=== PATIENT | female | born 1950 | race Caucasian/White ===

== ENCOUNTER 2017-08-11 12:58 | Observation (INO) | payer OTHER ==
[2017-08-11 13:45] LABS: BASO % 1.2 % (0-2.0); EOS % 1.5 % (0-4.5); HEMOGLOBIN 12.3 GM/dL (10.7-15.3); MCH 27.3 pg (25.7-33.7); MCHC 31.6 g/dl (32.0-36.0); MEAN CELL VOLUME 86.6 fl (80-96); MEAN PLT VOLUME 7.5 fl (7.5-11.1); MONO % 8.2 % (3.8-10.2); NEUT % 56.1 % (42.8-82.8); PLATELET COUNT 374 K/MM3 (134-434); RDW 16.3 % (11.6-15.6); WHITE BLOOD COUNT 11.4 K/mm3 (4.0-10.0)
[2017-08-11 13:47] VITALS: BMI 38.9
--- NOTE | 2017-08-11 13:50 | PDOC ---
Attending Attestation - HPI HPI: 08/11/17 16:45 Patient is a 66 year old female with a significant past medical history of HTN and Gout who presents to the ED with complaints of rib pain that began last night while at home. Patient reports experiencing rib that she states was intermittent all day. She reports rib pain increased in pain this afternoon until it became unbearable prompting her to come into the ED for further evaluation. Patient reports experiencing associated cramping with bilateral rib pain. She states rib pain feels similar to past episodes of gout she has experienced. Denies nausea, vomiting. Denies nausea vomiting. Denies fevers, chills. Denies trauma to affected area. Denies contact with sick individuals, out of state travelling. Denies any other symptoms Allergies: None Social history: No smoking. No alcohol. No illicit drugs. Surgical history: None PMD: Dr. Flores - Physicial Exam PE: 08/11/17 16:45 Vitals: Triage Vital signs reviewed General Appearance: +Moderate distress. no acute distress, well nourished well developed Head: Atraumatic Eyes: Pupils equal reactive round, extraocular movement intact Ears: TMs normal bilaterally Nose: Nares patent bilaterally; no nasal congestion Throat: Posterior oropharynx without erythema, mucous membranes moist Neck: Supple; No Nuchal rigidity Chest Wall: Nontender Cardiac: Regular rate and rhythm, no murmurs, no rubs, no gallops Lungs: Clear to auscultation bilateral, good air movement bilaterally Abdomen: Soft, non distended, normal bowel sounds, non tender to palpation Genitourinary: Rectal: Exam deferred Extremities: Full range of motion to all extremities, no cyanosis, clubbing, or edema Skin: Warm and dry, no rashes or lesions, no rash, no petechiae Neuro: AOX3; Cranial Nerves 2-12 grossly intact, Strength intact to all extremities, Sensation intact to all extremities, gait normal Psych: Normal mood, normal affect - Medical Decision Making 08/11/17 16:45 Documentation prepared by Heraclio Coker, acting as biomedical engineering aide for Bobby Hooper MD, /DO. <Heraclio Coker - Last Filed: 08/11/17 16:45> - Resident Resident Name: Isaias Byrd - ED Attending Attestation I have performed the following: I have examined & evaluated the patient, The case was reviewed & discussed with the resident, I agree w/resident's findings & plan, Exceptions are as noted - Medical Decision Making 66 years old past medical history significant for hypertension and gout presents with severe chest pain eating radiating to her back Patient in extremities upon arrival to the emergency department given age and past medical history and distribution of pain strong initial concern for dissection patient emergently sent to CT for CTA Upon arrival back from CAT scan no obvious evidence of dissection chest pain workup initiated Nonischemic EKG, first troponin negative will observe overnight for further evaluation of ACS heart score 4. 08/11/17 17:37 <Bobby Hooper - Last Filed: 08/11/17 17:37>
[2017-08-11 14:00] LABS: INR 0.96 (0.82-1.09); PROTHROMBIN TIME (PATIENT) 10.8 SEC (9.98-11.88)
[2017-08-11 14:44] LABS: ALBUMIN 4.3 g/dl (3.4-5.0); ANION GAP 7 (8-16); BLOOD UREA NITROGEN 31 mg/dL (7-18); CALCIUM 9.6 mg/dL (8.5-10.1); CHLORIDE 99 mmol/L (98-107); CO2 30 mmol/L (21-32); CREATININE 1.3 mg/dL (0.55-1.02); GLUCOSE,RANDOM 107 mg/dL (74-106); MAGNESIUM 2.6 mg/dL (1.8-2.4); POTASSIUM 5.3 mmol/L (3.5-5.1); SGOT/AST 18 U/L (15-37); SGPT/ALT 23 U/L (12-78); SODIUM 136 mmol/L (136-145)
[2017-08-11 14:49] LABS: ALK PHOS 96 U/L (45-117); BILIRUBIN,TOTAL 0.3 mg/dL (0.2-1.0); TOT PROT 8.2 g/dl (6.4-8.2)
[2017-08-11] MEDS ORDERED: SODIUM CHLORIDE 0.9% 1000 ML INFUS.BAG IV ONE (15:09)
--- NOTE | 2017-08-11 15:44 | PDOC ---
History of Present Illness - General Chief Complaint: Chest Pain Stated Complaint: CHEST PAIN Time Seen by Provider: 08/11/17 13:10 History Source: Patient Exam Limitations: Language Barrier (Chain Sales Consultant [id number]) - History of Present Illness Initial Comments: 08/11/17 15:10 The patient is a 66F with a PMH of gout and HTN who presents to the ER with rib pain. The patient states that she started having rib pain last night, which is similar to gout pain she has had 2 years ago and was hospitalized at a different facility. She states she also has diffuse cramping that is associated with the rib pain. She says the pain started last night and has been intermittent throughout the night. Today around 1220, she says the pain became acutely worse with cramping. She denies CP, SOB, fever, chills, nausea, vomiting , diarrhea, constipation, abdominal pain. Past History - Past Medical History Allergies/Adverse Reactions: Allergies Allergy/AdvReac Type Severity Reaction Status Date / Time No Known Allergies Allergy Verified 06/04/14 11:57 Home Medications: Ambulatory Orders Allopurinol 300 mg PO DAILY 08/11/17 Atenolol 100 mg PO DAILY 08/11/17 Lasix 40 mg PO DAILY 08/11/17 COPD: No HTN: Yes Liver Disease: Yes (HEP C) Psychiatric Problems: No (DEPRESSION) Thyroid Disease: Yes (HYPOTHYROID) - Suicide/Smoking/Psychosocial Hx Smoking History: Never smoked Have you smoked in the past 12 months: No Number of Cigarettes Smoked Daily: 0 Information on smoking cessation initiated: No Hx Alcohol Use: No Drug/Substance Use Hx: No Review of Systems - Review of Systems Able to Perform ROS?: Yes Comments:: 08/11/17 15:53 GENERAL/CONSTITUTIONAL: No fever or chills. No weakness. HEAD, EYES, EARS, NOSE AND THROAT: No change in vision. No ear pain or discharge. No sore throat. CARDIOVASCULAR: No chest pain, palpitations, or lightheadedness. RESPIRATORY: No cough, wheezing, shortness of breath, or hemoptysis. GASTROINTESTINAL: No nausea, vomiting, diarrhea, constipation, or abdominal pain. GENITOURINARY: No dysuria, frequency, hematuria, or change in urination. MUSCULOSKELETAL: Positive for rib pain and diffuse cramps. SKIN: No rash or lesions. NEUROLOGIC: No headache, numbness, tingling, weakness, loss of consciousness, or change in strength/sensation. ENDOCRINE: No increased thirst. No abnormal weight change. HEMATOLOGIC/LYMPHATIC: No anemia, easy bleeding, or history of blood clots. ALLERGIC/IMMUNOLOGIC: No hives or skin allergy. Is the patient limited Nepali proficient: No *Physical Exam - Vital Signs Last Vital Signs Temp Pulse Resp BP Pulse Ox 98 F 67 24 167/101 100 08/11/17 13:25 08/11/17 13:25 08/11/17 13:25 08/11/17 13:25 08/11/17 13:25 - Physical Exam Comments: 08/11/17 15:53 GENERAL: Well developed, well nourished. Morbidly obese. Awake and alert. In moderate distress, tearful. HEENT: Normocephalic, atraumatic. Hearing grossly normal. Moist mucous membranes. PERRLA, EOMI. No conjunctival pallor. Sclera are non-icteric. NECK: Supple. Full ROM. No JVD. CARDIOVASCULAR: Regular rate and rhythm. No murmurs, rubs, or gallops. Tenderness over ribs. PULMONARY: No evidence of respiratory distress. Lungs clear to auscultation bilaterally. No wheezing, rales or rhonchi. ABDOMINAL: Soft. Non-tender. Non-distended. No rebound or guarding. MUSCULOSKELETAL: Normal range of motion at all joints. No bony deformities or tenderness. EXTREMITIES: No cyanosis. No clubbing. No edema. No calf tenderness. SKIN: Warm and dry. Normal capillary refill. No rashes. No jaundice. NEUROLOGICAL: Alert, awake, appropriate. Cranial nerves 2-12 intact. Normal speech. PSYCHIATRIC: Cooperative. Good eye contact. Appropriate mood and affect. Heart Score/ECG Review #1 ECG reviewed & interpreted by me at: 13:45 General ECG Interpretation: Sinus Rhythm, Normal Rate, Normal Intervals, No acute ischemic changes Compared to previous ECG there are: No significant change 08/11/17 15:56 NSR Rate 68 NV 144 QRS 86 QTc 414 No acute ischemic changes noted. ED Treatment Course - LABORATORY CBC & Chemistry Diagram: 08/11/17 13:37 08/11/17 13:37 - ADDITIONAL ORDERS Additional order review: Laboratory Results 08/11/17 08/11/17 13:37 13:37 PT with INR 10.80 INR 0.96 Sodium 136 Potassium 5.3 H Chloride 99 Carbon Dioxide 30 Anion Gap 7 L BUN 31 H Creatinine 1.3 H Creat Clearance w eGFR 40.73 Random Glucose 107 H Calcium 9.6 Magnesium 2.6 H Total Bilirubin 0.3 D AST 18 ALT 23 Alkaline Phosphatase 96 Creatine Kinase 81 Troponin I < 0.02 Total Protein 8.2 Albumin 4.3 08/11/17 13:37 RBC 4.50 MCV 86.6 MCHC 31.6 L RDW 16.3 H D MPV 7.5 Neutrophils % 56.1 D Lymphocytes % 33.0 Monocytes % 8.2 Eosinophils % 1.5 Basophils % 1.2 - RADIOLOGY Radiology Studies Ordered: Category Date Time Status CHEST CTA [CT] Stat CT Scan 08/11/17 13:27 Taken CHEST X-RAY PORTABLE* [RAD] Stat Radiology 08/11/17 13:10 Ordered Medical Decision Making - Medical Decision Making 08/11/17 15:56 The patient is a 66 F with a PMH of HTN and gout who presents with complaints of chest gout and cramping. On presentation, her complaints of chest pain radiating to her back prompted me to think of a dissection/ACS. Labs and line were done. EKG NSR. Pt is hypertensive. Pain is resolved. Will monitor closely. Trop negative. K slightly elevated at 5.3 without EKG changes. PCP called to inform of pt's presentation. 08/11/17 17:00 I have endorsed the patient to Dr. Liang for an admission under Dr. Romero. 08/11/17 17:22 I have discussed the patient with Dr. Doe, associate of Dr. Flores, who states she's had gout in the past but in her L ankle He denies finding any records about gout-pain in her chest. *DC/Admit/Observation/Transfer Diagnosis at time of Disposition: Chest pain Qualifiers: Chest pain type: other chest pain Qualified Code(s): R07.89 - Other chest pain - Discharge Dispostion Condition at time of disposition: Stable Admit: Yes - Referrals Referrals: German Flores MD [Primary Care Provider] - - Patient Instructions - Post Discharge Activity
[2017-08-11] MEDS ORDERED: ACETAMINOPHEN 1000 MG/100 ML VIAL (NON FORMULARY) IVPB ONE (16:30)
[2017-08-11] MEDS ORDERED: ACETAMINOPHEN INJECTION 100 ML IVPB ONE (16:33)
--- NOTE | 2017-08-11 18:09 | HP ---
CHIEF COMPLAINT: chest pain PCP: Dr. Flores HISTORY OF PRESENT ILLNESS: 66F Egyptian speaking with PMH of htn, gout, hypothyoidism, hep C (treated), presents with substernal chest pain since this morning while at the dentist office. Chest pain radiates to Right shoulder, and is associated with palpitations and sob. Pain became acutely worse this afternoon prompting her to come to the ER. Pt describes sharp pain, that reminds her of gout pain, though she has never had gout in the chest before. Pain is now resolved s/p Ofirmev in ER. Pt denies headache, change in vision, fever, chills, sick contacts, abdominal pain, nausea, vomiting, diarrhea, constipation, diaphoresis. ER course was notable for: (1) trop (-) (2) Chest/Thorax/Abd CTA -> (-) for aortic dissection (3) Ofirmev 1g, NS 1 L bolus PAST MEDICAL HISTORY: htn gout hypothyroidism hep C (treated) PAST SURGICAL HISTORY: thyroidectomy Social History: Smoking: remote hx of 10 pack yrs, quit 10 yrs ago Alcohol: denies Drugs: denies Family History: no significant cardiac hx Allergies No Known Allergies Allergy (Verified 06/04/14 11:57) HOME MEDICATIONS: Home Medications Medication Instructions Recorded Allopurinol 300 mg PO DAILY 08/11/17 Atenolol 100 mg PO DAILY 08/11/17 Lasix 40 mg PO DAILY 08/11/17 REVIEW OF SYSTEMS CONSTITUTIONAL: Absent: fever, chills, diaphoresis, generalized weakness HEENT: Absent: rhinorrhea, nasal congestion, throat pain, ear pain, eye pain, visual changes CARDIOVASCULAR: chest pain, palpitations Absent: irregular heart rate, lightheadedness, peripheral edema RESPIRATORY: shortness of breath Absent: cough, orthopnea, wheezing, stridor, hemoptysis GASTROINTESTINAL: Absent: abdominal pain, abdominal distension, nausea, vomiting, diarrhea, constipation GENITOURINARY: Absent: dysuria, frequency MUSCULOSKELETAL: Absent: myalgia, arthralgia, joint swelling, back pain, neck pain SKIN: Absent: rash, itching, pallor HEMATOLOGIC/IMMUNOLOGIC: Absent: easy bleeding, easy bruising NEUROLOGIC: Absent: headache, focal weakness or paresthesias, dizziness, unsteady gait PHYSICAL EXAMINATION Vital Signs - 24 hr 08/11/17 08/11/17 13:25 16:07 Temperature 98 F 97.8 F Pulse Rate 67 Pulse Rate [ 65 Right] Respiratory 24 15 Rate Blood Pressure 167/101 Blood Pressure 146/62 [Left Arm] O2 Sat by Pulse 100 99 Oximetry (%) GENERAL: Awake, alert, and fully oriented, in no acute distress. EYES: Pupils equal, round and reactive to light, extraocular movements intact, sclera anicteric, conjunctiva clear. No lid lag. EARS, NOSE, THROAT: Moist mucous membranes. NECK: Normal range of motion, supple without lymphadenopathy, JVD, or masses. LUNGS: Breath sounds equal, clear to auscultation bilaterally. No wheezes, and no crackles. No accessory muscle use. HEART: Regular rate and rhythm, normal S1 and S2 without murmur, rub or gallop. + chest wall tenderness. ABDOMEN: Soft, nontender, not distended, no guarding. MUSCULOSKELETAL: Normal range of motion at all joints. No bony deformities or tenderness. LOWER EXTREMITIES: Warm, well-perfused. No calf tenderness. No peripheral edema. NEUROLOGICAL: Cranial nerves II-XII intact. Normal speech. PSYCHIATRIC: Cooperative. Good eye contact. Appropriate mood and affect. SKIN: Warm, dry, normal turgor, no rashes or lesions noted. Laboratory Results - last 24 hr 08/11/17 08/11/17 08/11/17 13:37 13:37 13:37 WBC 11.4 H D RBC 4.50 Hgb 12.3 Hct 39.0 MCV 86.6 MCH 27.3 MCHC 31.6 L RDW 16.3 H D Plt Count 374 D MPV 7.5 Neutrophils % 56.1 D Lymphocytes % 33.0 Monocytes % 8.2 Eosinophils % 1.5 Basophils % 1.2 PT with INR 10.80 INR 0.96 Sodium 136 Potassium 5.3 H Chloride 99 Carbon Dioxide 30 Anion Gap 7 L BUN 31 H Creatinine 1.3 H Creat Clearance w eGFR 40.73 Random Glucose 107 H Calcium 9.6 Magnesium 2.6 H Total Bilirubin 0.3 D AST 18 ALT 23 Alkaline Phosphatase 96 Creatine Kinase 81 Troponin I < 0.02 Total Protein 8.2 Albumin 4.3 IMAGIN08/11/17 Chest/Thorax/Abd CTA -> no aortic dissection. Mild mally lower lung groundglass interstitial thickening which may represent small airway disease. 2.4cm x 1.7cm heterogeneous soft tissue nodule in inferior aspect of Left thyroid fossa, Ddx: residual thyroid disease vs parathyroid adenoma vs enlarged lymph node. F/u recommended. Mild Left adrenal gland thickening likely 2/2 hyperplasia vs multiple small adenomas. 3 mo f/u with CT or MRI recommended. 0.2cm Right upper lobe lung nodule noted. 08/11/17 EKG -> no ST segment changes, NSR 86, QTc 414 ASSESSMENT/PLAN: 66F Egyptian speaking with PMH of htn, gout, hypothyoidism, hep C (treated), presents with substernal chest pain since this morning, admitted to Tele Obs for ACS r/o. # chest pain - Ddx: ACS vs muscloskeletal - f/u troponin - continuous cardiac monitoring - f/u Echo - Cardiology Consult # NINO - likely 2/2 dehydration - continue to monitor s/p 1L bolus of NS - f/u urine lytes - hold home med of Lasix # htn - continue home meds of Atenolol and Norvasc # gout - no s/s of flare - hold home meds of Allopurinol, Colchicine, and Indomethacin for now 2/2 NINO # thyroid nodule - s/p thyroidectomy, Ddx: residual thyroid tissue vs parathyroid adenoma vs enlarged lymph node - f/u outpatient # hyperkalemia - no EKG changes noted - continue to monitor # FEN - Fluids: po - Electrolytes: hyperkalemia and hypermagnesemia noted, continue to monitor - Nutrition: low sodium diet # Prophylaxis - DVT ppx with early ambulation Visit type - Emergency Visit Emergency Visit: Yes ED Registration Date: 08/11/17 Care time: The patient presented to the Emergency Department on the above date and was hospitalized for further evaluation of their emergent condition. - New Patient This patient is new to me today: Yes Date on this admission: 08/11/17 - Critical Care Critical Care patient: No Hospitalist Screening - Colonoscopy Questionnaire Colonoscopy Questionnaire: Colonoscopy Questionnaire - Patient: 50 - 75 years old and never had a screening colonoscopy: Unknown History of colon or rectal polyps, or CA: Unknown History of IBD, Crohn's disease or UC: No History of abdominal radiation therapy as a child: No - Relative: 1 with colon or rectal CA, or polyps at age 60 or younger: Unknown Colon or rectal CA diagnosed at age 45 or younger: No Multiple relatives with colon or rectal CA: Unknown - Outcome: Screening Result: Negative Screen
--- NOTE | 2017-08-11 18:48 | PN ---
Teaching Attending Note Name of Resident: Daysi Mclean ATTENDING PHYSICIAN STATEMENT I saw and evaluated the patient. I reviewed the resident's note and discussed the case with the resident. I agree with the resident's findings and plan as documented. SUBJECTIVE:66yo F wtih PMH HTN, gout, hypothyroid s/p thyroidectomy, HCV s/p treated presenting with episode of CP radiating to the R shoulder today while at the dentist office. states pain lasted for several hours and resolved with tylenol on arrival to the ER. assoc with palpitations and dyspnea. states she was unable to sleep last night and was up all night with leg cramps. had similar episode on Monday at her PMD office but less severe and PMD gave her new script for lasix/atenolol/allopurinol which she started taking and did take this AM. does have intermittent SOB with back pain on exertion for several weeks. Had treadmill stress test 3 years ago which she does not know the results but was told she could not travel for 3 months after the test. Stress test was negative and done prior to lipoma removal in the trachea?. denies CP at rest, N/V/C/D, palpitations, diaphoresis, numbness/tingling of the extremities no significant family hx for cardiac disease quit smoking 10 years ago OBJECTIVE: Last Vital Signs Temp Pulse Resp BP Pulse Ox 97.8 F 64 15 152/90 100 08/11/17 16:07 08/11/17 18:39 08/11/17 18:39 08/11/17 18:39 08/11/17 18:39 General NAD CV S1 S2 RRR no murmur/rub/gallop +chest wall tenderness Lungs CTA B/L no wheezing/rales/rhonchi Abdomen soft NT/ND Extremities RUE no pain on passive movement. +non pitting edema limited to the arm. no pedal edema EKG NSR no ST changes or peaked T waves ASSESSMENT AND PLAN: 66yo F wtih PMH HTN, gout, hypothyroid s/p thyroidectomy, HCV s/p treated presenting with episode of CP radiating to the R shoulder today while at the dentist office. 1. ACS-believe this is more to "white coat syndrome" and anxiety however can not r/o acs. tele observation. continuous cardiac monitoring. CTA done to R/o dissection, no PE seen. trend cardiac enzymes q6H. will consult cardiology. Stress test was negative however told not to fly 3 months after. (old thinking due to radiation exposure) 2. Leukocytosis- stress related. do not believe to have infection. CT negative for infiltrate. no indication for abx 3. NINO- due to dehydration. received IVF in the ER. started on lasix recently. might be overdiuresed. hold lasix 4. Thyroid nodule- s/p thyroidectomy may have residual tissue. will need f/u as outpatient 5. RUL pulmonary nodule- will need outpatient follow up 6. HTN- currently above goal. will restart home medications 7. gout- no signs of gout flare. hold allopuinol due to nino 8. HCV s/p treatment 9. DVT ppx- EAM 10. case spoke with family present at bedside. all questions answered.
[2017-08-12 02:11] LABS: URINE APPEARANCE CLEAR; URINE BILIRUBIN NEGATIVE (NEGATIVE); URINE BLOOD NEGATIVE (NEGATIVE); URINE COLOR STRAW; URINE GLUCOSE (UA) NEGATIVE (NEGATIVE); URINE KETONE NEGATIVE (NEGATIVE); URINE LEUK ESTERASE NEGATIVE (NEGATIVE); URINE NITRITE NEGATIVE (NEGATIVE); URINE PROTEIN NEGATIVE (NEGATIVE); URINE UROBILINOGEN NEGATIVE mg/dL (0.2-1.0)
[2017-08-12 06:54] LABS: HEMATOCRIT 32.9 % (32.4-45.2); HEMOGLOBIN 10.9 GM/dL (10.7-15.3); MCH 28.6 pg (25.7-33.7); MCHC 33.2 g/dl (32.0-36.0); MEAN PLT VOLUME 8.1 fl (7.5-11.1); PLATELET COUNT 314 K/MM3 (134-434); RBC 3.82 M/mm3 (3.60-5.2); RDW 16.9 % (11.6-15.6); WHITE BLOOD COUNT 7.3 K/mm3 (4.0-10.0)
[2017-08-12 07:09] LABS: CHLORIDE 100 mmol/L (98-107); POTASSIUM 4.7 mmol/L (3.5-5.1); SODIUM 139 mmol/L (136-145)
[2017-08-12 07:26] LABS: ANION GAP 10 (8-16); BLOOD UREA NITROGEN 25 mg/dL (7-18); CO2 29 mmol/L (21-32); CREATININE 1.2 mg/dL (0.55-1.02); GLUCOSE,RANDOM 96 mg/dL (74-106); MAGNESIUM 2.6 mg/dL (1.8-2.4); PHOSPHOROUS 4.7 mg/dL (2.5-4.9)
[2017-08-12] MEDS ORDERED: PATIENT'S OWN MEDICATION (NON-FORMULARY) (Atenolol [Tenormin] 100 MG) PO SCH (10:00)
[2017-08-12] MEDS ORDERED: amLODIPine BESYLATE 10 MG TABLET (FP) PO SCH (10:00)
[2017-08-12] MEDS ORDERED: COLCHICINE 0.6 MG TABLET (FP) PO SCH (10:00)
[2017-08-12] MEDS ORDERED: ATENOLOL 50 MG TABLET (FP) PO SCH (10:00)
[2017-08-12] MEDS ORDERED: ALLOPURINOL 300 MG TABLET (FP) PO SCH (10:00)
[2017-08-12 10:03] VITALS: BP 128/59; PULSE 73; TEMP 96.6
--- NOTE | 2017-08-12 12:46 | DS ---
Physical Exam: SUBJECTIVE: Patient seen and examined. continues to have chest pain that radiates from her R leg to her chest. denies fever, chills, palpitations, N/V/C/ D OBJECTIVE: Vital Signs Period Temp Pulse Resp BP Sys/[place] Pulse Ox Last 24 Hr 96.6 F-98.1 F 64-73 15-24 118-182/59-101 95-100 PHYSICAL EXAM GENERAL: The patient is awake, alert, and fully oriented, in no acute distress. HEAD: Normal with no signs of trauma. EYES: PERRL, extraocular movements intact, sclera anicteric, conjunctiva clear. ENT: Ears normal, nares patent, oropharynx clear without exudates, moist mucous membranes. NECK: Trachea midline, full range of motion, supple. LUNGS: Breath sounds equal, clear to auscultation bilaterally, no wheezes, no crackles, no accessory muscle use. HEART: Regular rate and rhythm, S1, S2 without murmur, rub or gallop. +chest wall tenderness ABDOMEN: Soft, nontender, nondistended, normoactive bowel sounds, no guarding, no rebound, no hepatosplenomegaly, no masses. obese EXTREMITIES: 2+ pulses, warm, well-perfused, no edema. NEUROLOGICAL: Cranial nerves II through XII grossly intact. Normal speech, gait not observed. muskuloskeletal- diffuse point tenderness, B/L shoulder, thighs, neck, spine PSYCH: Normal mood, normal affect. SKIN: Warm, dry, normal turgor, no rashes or lesions noted. LABS Laboratory Results - last 24 hr 08/11/17 08/11/17 08/11/17 13:37 13:37 13:37 WBC 11.4 H D RBC 4.50 Hgb 12.3 Hct 39.0 MCV 86.6 MCH 27.3 MCHC 31.6 L RDW 16.3 H D Plt Count 374 D MPV 7.5 Neutrophils % 56.1 D Lymphocytes % 33.0 Monocytes % 8.2 Eosinophils % 1.5 Basophils % 1.2 PT with INR 10.80 INR 0.96 Sodium 136 Potassium 5.3 H Chloride 99 Carbon Dioxide 30 Anion Gap 7 L BUN 31 H Creatinine 1.3 H Creat Clearance w eGFR 40.73 Random Glucose 107 H Calcium 9.6 Phosphorus Magnesium 2.6 H Total Bilirubin 0.3 D AST 18 ALT 23 Alkaline Phosphatase 96 Creatine Kinase 81 Troponin I < 0.02 Total Protein 8.2 Albumin 4.3 Urine Color Urine Appearance Urine pH Ur Specific [place] Urine Protein Urine Glucose (UA) Urine Ketones Urine Blood Urine Nitrite Urine Bilirubin Urine Urobilinogen Ur Leukocyte Esterase Ur Random Sodium Urine Creatinine 08/11/17 08/12/17 08/12/17 20:45 02:00 02:00 WBC RBC Hgb Hct MCV MCH MCHC RDW Plt Count MPV Neutrophils % Lymphocytes % Monocytes % Eosinophils % Basophils % PT with INR INR Sodium Potassium Chloride Carbon Dioxide Anion Gap BUN Creatinine Creat Clearance w eGFR Random Glucose Calcium Phosphorus Magnesium Total Bilirubin AST ALT Alkaline Phosphatase Creatine Kinase Troponin I < 0.02 Total Protein Albumin Urine Color Straw Urine Appearance Clear Urine pH 7.0 D Ur Specific [place] 1.017 Urine Protein Negative Urine Glucose (UA) Negative Urine Ketones Negative Urine Blood Negative Urine Nitrite Negative Urine Bilirubin Negative Urine Urobilinogen Negative Ur Leukocyte Esterase Negative Ur Random Sodium 67 Urine Creatinine 08/12/17 08/12/17 08/12/17 02:00 05:10 05:10 WBC 7.3 D RBC 3.82 Hgb 10.9 D Hct 32.9 D MCV 86.0 MCH 28.6 MCHC 33.2 RDW 16.9 H Plt Count 314 MPV 8.1 Neutrophils % Lymphocytes % Monocytes % Eosinophils % Basophils % PT with INR INR Sodium 139 Potassium 4.7 Chloride 100 Carbon Dioxide 29 Anion Gap 10 BUN 25 H Creatinine 1.2 H Creat Clearance w eGFR Random Glucose 96 Calcium 9.0 Phosphorus 4.7 Magnesium 2.6 H Total Bilirubin AST ALT Alkaline Phosphatase Creatine Kinase Troponin I Total Protein Albumin Urine Color Urine Appearance Urine pH Ur Specific [place] Urine Protein Urine Glucose (UA) Urine Ketones Urine Blood Urine Nitrite Urine Bilirubin Urine Urobilinogen Ur Leukocyte Esterase Ur Random Sodium Urine Creatinine 36.1 HOSPITAL COURSE: Date of Admission:08/11/17 Date of Discharge: 08/12/17 Admitting diagnosis: R/o ACS, NINO Pre hospital course 66yo F wtih PMH HTN, gout, hypothyroid s/p thyroidectomy, HCV s/p treated presenting with episode of CP radiating to the R shoulder today while at the dentist office. states pain lasted for several hours and resolved with tylenol on arrival to the ER. assoc with palpitations and dyspnea. states she was unable to sleep last night and was up all night with leg cramps. had similar episode on Monday at her PMD office but less severe and PMD gave her new script for lasix/atenolol/allopurinol which she started taking and did take this AM. does have intermittent SOB with back pain on exertion for several weeks. Had treadmill stress test 3 years ago which she does not know the results but was told she could not travel for 3 months after the test. Stress test was done prior to ?lipoma removal in the trachea. denies CP at rest, N/V/C/ D, palpitations, diaphoresis, numbness/tingling of the extremities no significant family hx for cardiac disease quit smoking 10 years ago Subsequent hospital course Tele observation. no events noted on youth nutritional monitor. cardiac enzymes neg x2. continues to have persistent musculoskeletal pain diffusely. pain persisted to morning and reproducible. exercise stress test was neg 3 years ago per daughter. NINO improved with gentle hydration. will d/c home. encourage pt to hold lasix at this time. should follow up wt PMD this week and possible [facility] possible fibromyalgia as she has diffuse symmetrical pain points. Minutes to complete discharge: 40 Discharge Summary Reason For Visit: CHEST PAIN Current Active Problems NINO (acute kidney injury) (Acute) Chest pain (Acute) Condition: Improved - Instructions Diet, Activity, Other Instructions: You were observed in the hospital due to Chest pain. Your heart was monitored during this time. All testing was negative. It seems like this chest pain was due to anxiety while at the doctors office. You were found to have a slight bump in your kidney function likely due to the lasix. I would recommend holding it at this time until you are re-evaluated by your primary care doctor and have your kidney function repeated. On CT scan there was found to have a Left thyroid nodule as well as a nodule in your right lung. You should have repeat imaging to further evaluate these findings. Follow up with your primary care doctor this week. Discuss with him your chronic diffuse body aches that you have been experiencing. You may benefit from a rheumatology evaluation IF you develop worsening chest pain return to the ER. Referrals: German Flores MD [Primary Care Provider] - 1 Week Disposition: HOME - Home Medications Comprehensive Discharge Medication List: Ambulatory Orders Allopurinol [Zyloprim -] 300 mg PO DAILY 08/11/17 Amlodipine Besylate [Norvasc -] 10 mg PO DAILY 08/11/17 Atenolol [Tenormin] 100 mg PO DAILY 08/11/17 Colchicine 0.6 mg PO DAILY 08/11/17 Indomethacin 50 mg PO BID 08/11/17 Atenolol [Tenormin -] 100 mg PO DAILY tablet 08/12/17 This patient is new to me today: No Emergency Visit: Yes ED Registration Date: 08/11/17 Care time: The patient presented to the Emergency Department on the above date and was hospitalized for further evaluation of their emergent condition. Critical Care patient: No - Discharge Referral Referred to [facility] Med P.C.: No
--- NOTE | 2017-08-12 14:51 | PN ---
Progress Note, Physician History of Present Illness: Patient is a 66 year old female with a significant past medical history of HTN and Gout who presents to the ED with complaints of rib pain that began last night while at home. Patient reports experiencing rib that she states was intermittent all day. She reports rib pain increased in pain this afternoon until it became unbearable prompting her to come into the ED for further evaluation. Patient reports experiencing associated cramping with bilateral rib pain. She states rib pain feels similar to past episodes of gout she has experienced. - Current Medication List Current Medications: Active Medications Amlodipine Besylate (Norvasc -) 10 mg PO DAILY COUNTS INCLUDE 234 BEDS AT THE [facility] Last Admin: 08/12/17 09:27 Dose: 10 mg Atenolol (Tenormin -) 100 mg PO DAILY COUNTS INCLUDE 234 BEDS AT THE [facility] Last Admin: 08/12/17 09:27 Dose: 100 mg - Objective Vital Signs: Vital Signs Temperature 96.6 F L 08/12/17 09:00 Pulse Rate 73 08/12/17 09:00 Respiratory Rate 16 08/12/17 09:00 Blood Pressure 128/59 08/12/17 09:00 O2 Sat by Pulse Oximetry (%) 95 08/12/17 09:00 Labs: CBC, BMP 08/12/17 05:10 08/12/17 05:10 INR, PTT INR 0.96 (0.82-1.09) 08/11/17 13:37 Problem List - Problems (1) Gout Code(s): M10.9 - GOUT, UNSPECIFIED
--- NOTE | 2017-08-15 11:44 | EKG ---
Test Reason : Blood Pressure : / mmHG Vent. Rate : 073 BPM Atrial Rate : 073 BPM P-R Int : 138 ms QRS Dur : 090 ms QT Int : 384 ms P-R-T Axes : 055 034 055 degrees QTc Int : 423 ms NORMAL SINUS RHYTHM NORMAL ECG WHEN COMPARED WITH ECG OF 04-JUN-2014 17:00, INCOMPLETE RIGHT BUNDLE BRANCH BLOCK IS NO LONGER PRESENT Confirmed by MD Geovani, German ([id number]) on 08/15/2017 11:44:09 AM Referred By: Confirmed By:German Olivo MD
== END 2017-08-12 15:49 | disposition home or self-care (01) ==
LOC: JER 12:58 → JERBED 17:01 → J4W 19:25
PROVIDERS: ADMIT Internal Medicine; ATTEND Internal Medicine
PROC: 3E033GC Introduction of Other Therapeutic Substance into Peripheral Vein, Percutaneous Approach (ICD-10-PCS; principal; 2017-08-11)
PROC: 3E0337Z Introduction of Electrolytic and Water Balance Substance into Peripheral Vein, Percutaneous Approach (ICD-10-PCS; 2017-08-11)
DX: R07.89 Other chest pain (principal); I10 Essential (primary) hypertension; E03.9 Hypothyroidism, unspecified; M10.9 Gout, unspecified; B18.2 Chronic viral hepatitis C; N17.9 Acute kidney failure, unspecified; E87.5 Hyperkalemia; E04.1 Nontoxic single thyroid nodule; D72.829 Elevated white blood cell count, unspecified; R91.1 Solitary pulmonary nodule
CPT/HCPCS: 36415; 71275-TC; 74175-TC; 80048; 80053; 81003; 82550; 82570; 83735; 84100; 84300; 84484; 85025; 85027; 85610; 93005; 93010; 96374; 99285-25; G0378

== ENCOUNTER 2019-07-20 14:48 | Emergency (ER) | payer OTHER ==
[2019-07-20 15:45] VITALS: BMI 32.8
--- NOTE | 2019-07-20 15:55 | PDOC ---
Attending Attestation - Resident Resident Name: Austen Peterson - HPI HPI: 07/20/19 19:45 pt presents to the ED complaining of gradual onset, diffuse frontal headache. Also complaining of subjective fevers and diffuse myalgias. Denies nausea and vomiting but does complain of photophobia. Denies neck stiffness. Denies cough. - Physicial Exam PE: 07/20/19 19:47 Agree with resident exam. patient is alert and oriented and in no acute distress. HEENT: normocephalic, atraumatic. Neck: supple CV: rrr no m/r/g Pulm : cta b/l Abdomen:soft, non tender, non distended - Medical Decision Making 07/20/19 19:48 PT presents to the ED complaining of diffuse frontal headache, subjective fevers and diffuse myalgias. No stiffness or rash. Flu is negative. afebrile rectally, so menigitis is unlikely. Will check CT head to rule out intracranial pathology and likely discharge home if negative.
--- NOTE | 2019-07-20 16:26 | PDOC ---
History of Present Illness - General Chief Complaint: Headache Stated Complaint: FEVER/COLD SYMPTOMS Time Seen by Provider: 07/20/19 15:55 History Source: Patient Exam Limitations: No Limitations - History of Present Illness Initial Comments: 07/20/19 18:25 68 yo F with a hx of HTN, gout, hypothyroidism s/p thyroidectomy, hepatitis C, and vertigo presents to the emergency department with fever, generalized weakness, headache, and nausea. Per the patient, she states she has been having symptoms since yesterday. She denies trauma to the head. Per the patient, she subjectively has a fever, but denies taking her temperature objectively while at home. Her headache is located globally throughout the cranium and is a throbbing sensation. Denies vomiting but endorses nausea. Endorses diarrhea beginning today. In concurrence, she has epigastric pain without radiation that is sharp in nature without aggravating or relieving factors. Allergies: NDKA Past History - Past Medical History Allergies/Adverse Reactions: Allergies Allergy/AdvReac Type Severity Reaction Status Date / Time No Known Allergies Allergy Verified 06/04/14 11:57 Home Medications: Ambulatory Orders Allopurinol [Zyloprim -] 300 mg PO DAILY 08/11/17 Atenolol [Tenormin] 100 mg PO DAILY 08/11/17 Duloxetine HCl [Cymbalta -] 30 mg PO BID 07/20/19 Fluticasone Furoate [Arnuity Ellipta] 50 mcg IH BID 07/20/19 Folic Acid - 800 mg PO DAILY 07/20/19 Gabapentin [Neurontin] 300 mg PO BID 07/20/19 Ibuprofen [Motrin -] 600 mg PO BID PRN 07/20/19 Lisinopril [Zestril] 40 mg PO DAILY 07/20/19 Losartan Potassium [Cozaar -] 50 mg PO DAILY 07/20/19 Methotrexate [Xatmep] 2.5 mg PO WEEKLY 07/20/19 Nifedipine [Nifedipine ER] 60 mg PO DAILY 07/20/19 Omeprazole 20 mg PO DAILY 07/20/19 Telmisartan [Micardis] 80 mg PO DAILY 07/20/19 COPD: No HTN: Yes Liver Disease: Yes (HEP C) Psychiatric Problems: No (DEPRESSION) Thyroid Disease: Yes (HYPOTHYROID) - Psycho Social/Smoking Cessation Hx Smoking History: Never smoked Have you smoked in the past 12 months: No Number of Cigarettes Smoked Daily: 0 Hx Alcohol Use: No Drug/Substance Use Hx: No Review of Systems - Review of Systems Able to Perform ROS?: Yes Is the patient limited German proficient: No Constitutional: Yes: Fever, Weakness. No: Chills, Diaphoresis HEENTM: No: Eye Pain, Ear Pain, Nose Pain, Throat Pain, Mouth Pain Respiratory: No: Cough, Shortness of Breath, Hemoptysis Cardiac (ROS): No: Chest Pain, Lightheadedness, Palpitations, Chest Tightness ABD/GI: Yes: Nausea, Abdominal cramping. No: Constipated, Diarrhea, Rectal Bleeding, Vomiting, Tarry Stools : No: Burning, Dysuria, Hematuria Musculoskeletal: No: Back Pain, Joint Pain, Neck Pain Integumentary: No: Bruising, Erythema, Rash Neurological: Yes: Headache. No: Numbness, Tingling, Tremors Psychiatric: No: Change in Appetite Endocrine: No: Unexplained Weight Loss Hematologic/Lymphatic: No: Anemia *Physical Exam - Vital Signs Last Vital Signs Temp Pulse Resp BP Pulse Ox 99.5 F 82 19 163/73 96 07/20/19 15:41 07/20/19 15:41 07/20/19 15:41 07/20/19 15:41 07/20/19 15:41 - Physical Exam General Appearance: Yes: Nourished, Appropriately Dressed. No: Apparent Distress, Alcohol on Breath, Intoxicated HEENT: positive: EOMI, [place], Normal Voice, Symmetrical, Pharynx Normal, Hearing Grossly Normal. negative: TMs Normal (right TM erythematous with serrous effusion), Pale Conjunctivae, Scleral Icterus (R), Scleral Icterus (L), Muffled/ Hoarse voice, Pharyngeal Erythema, Tonsillar Exudate, Tonsillar Erythema, Nasal Congestion, Rhinorrhea, Sinus Tenderness, Excessive drooling Neck: positive: Trachea midline, Supple. negative: Tender, Lymphadenopathy (R) , Lymphadenopathy (L), Tender lateral, Tender midline Respiratory/Chest: positive: Lungs Clear, Normal Breath Sounds. negative: Chest Tender, Respiratory Distress, Accessory Muscle Use, Crackles, Rales, Rhonchi, Stridor, Wheezing Cardiovascular: positive: Regular Rhythm, Regular Rate, S1, S2. negative: Systolic Murmur Gastrointestinal/Abdominal: positive: Normal Bowel Sounds, Tender (epigastric region), Flat, Soft. negative: Distended, Guarding, Rebound Lymphatic: negative: Adenopathy Musculoskeletal: positive: Normal Inspection. negative: CVA Tenderness, Vertebral Tenderness Extremity: positive: Normal Capillary Refill, Normal Inspection, Normal Range of Motion. negative: Tender, Swelling, Calf Tenderness Integumentary: positive: Normal Color, Dry, Warm. 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 negative: EOM Palsy, Facial Droop , Numbness, Sensory Deficit ED Treatment Course - LABORATORY CBC & Chemistry Diagram: 07/20/19 16:48 07/20/19 16:48 Medical Decision Making - Medical Decision Making 68 yo F with a hx of HTN, gout, hypothyroidism s/p thyroidectomy, hepatitis C, and vertigo presents to the emergency department with fever, generalized weakness, headache, and nausea. Initial vitals: Initial Vital Signs Temp Pulse Resp BP Pulse Ox 99.5 F 82 19 163/73 96 07/20/19 15:41 07/20/19 15:41 07/20/19 15:41 07/20/19 15:41 07/20/19 15:41 Work up: patient presents with a multitude of complaints. Most notably, the patient states her headache is particularly severe and the different in quality from her previous headaches. It started yesterday. Will obtain head CT to rule out IC pathologies (SAH vs SDH vs EDH). Also will obtain the following labs: cbc, cmp, trops, magnesium, lipase, and UA to elucidate etiology of weakness with a cardiac vs metabolic vs infectious. Will also rule out pancreatitis and influenza. Will require a rectal temperature. Laboratory Tests 07/20/19 07/20/19 07/20/19 16:48 16:48 16:48 WBC 6.9 RBC 3.58 L Hgb 10.5 L Hct 32.8 MCV 91.6 MCH 29.4 MCHC 32.1 RDW 15.6 Plt Count 255 MPV 7.6 Absolute Neuts (auto) 4.4 Neutrophils % 63.8 Lymphocytes % 21.7 D Monocytes % 12.6 H Eosinophils % 1.4 Basophils % 0.5 Nucleated RBC % 0 Sodium 135 L Potassium 4.6 Chloride 102 Carbon Dioxide 26 Anion Gap 7 L BUN 18.7 H Creatinine 1.1 Est GFR (CKD-EPI)AfAm 58.91 Est GFR (CKD-EPI)NonAf 50.83 Random Glucose 89 Calcium 9.1 Magnesium 2.2 Total Bilirubin 0.3 AST 29 ALT 23 Alkaline Phosphatase 81 Creatine Kinase 96 Troponin I < 0.02 Total Protein 7.7 Albumin 3.7 Lipase 81 Urine Color Urine Appearance Urine pH Ur Specific [place] Urine Protein Urine Glucose (UA) Urine Ketones Urine Blood Urine Nitrite Urine Bilirubin Urine Urobilinogen Ur Leukocyte Esterase Urine WBC (Auto) Urine RBC (Auto) Urine Casts (Auto) U Epithel Cells (Auto) Urine Bacteria (Auto) Influenza A (Rapid) Influenza B (Rapid) 07/20/19 07/20/19 16:48 19:00 WBC RBC Hgb Hct MCV MCH MCHC RDW Plt Count MPV Absolute Neuts (auto) Neutrophils % Lymphocytes % Monocytes % Eosinophils % Basophils % Nucleated RBC % Sodium Potassium Chloride Carbon Dioxide Anion Gap BUN Creatinine Est GFR (CKD-EPI)AfAm Est GFR (CKD-EPI)NonAf Random Glucose Calcium Magnesium Total Bilirubin AST ALT Alkaline Phosphatase Creatine Kinase Troponin I Total Protein Albumin Lipase Urine Color Yellow Urine Appearance Clear Urine pH 7.0 Ur Specific [place] 1.007 L Urine Protein Negative Urine Glucose (UA) Negative Urine Ketones Negative Urine Blood 1+ H Urine Nitrite Negative Urine Bilirubin Negative Urine Urobilinogen 0.2 Ur Leukocyte Esterase Negative Urine WBC (Auto) 0 Urine RBC (Auto) 7 Urine Casts (Auto) 0 U Epithel Cells (Auto) 0.1 Urine Bacteria (Auto) 0.3 Influenza A (Rapid) Negative Influenza B (Rapid) Negative Pending Head CT Interventions: tylenol, fluids, and zofran. Labs: no UTI. Negative flu. negative leukocytosis and negative troponins. 07/20/19 19:06 ventricular rate is 74 bpm, UT 150 ms, QRS is [address] elevations or depressions CXR: no sign of infiltrate noted on xray Patient to be signed out to night team Discharge - Discharge Information Problems reviewed: Yes Clinical Impression/Diagnosis: Headache Disposition: HOME - Admission No - Follow up/Referral Referrals: German Flores MD [Primary Care Provider] - - Patient Discharge Instructions Patient Printed Discharge Instructions: DI for Headache Additional Instructions: Please see your Primary Doctor within the next 48 hours. Take over the counter tylenol for headaches and fevers. Return to the ER for new or concerning symptoms including but not limited to: changes in vision, weakness or sensory changes on 1 side, confusion, balance difficulty. Thank you Print Language: GIBRALTARIAN - Post Discharge Activity
[2019-07-20] MEDS ORDERED: ONDANSETRON 4 MG/2 ML VIAL IVPUSH ONE (16:35)
[2019-07-20] MEDS ORDERED: ACETAMINOPHEN 1000 MG/100 ML VIAL (NON FORMULARY) IVPB ONE (16:35)
[2019-07-20] MEDS ORDERED: SODIUM CHLORIDE 1,000 ML IV STA (16:35)
[2019-07-20 17:19] LABS: BASO % 0.5 % (0-2.0); EOS % 1.4 % (0-4.5); HEMATOCRIT 32.8 % (32.4-45.2); HEMOGLOBIN 10.5 GM/dL (10.7-15.3); LYMPH % 21.7 % (8-40); MCH 29.4 pg (25.7-33.7); MCHC 32.1 g/dl (32.0-36.0); MEAN CELL VOLUME 91.6 fl (80-96); MEAN PLT VOLUME 7.6 fl (7.5-11.1); MONO % 12.6 % (3.8-10.2); NEUT % 63.8 % (42.8-82.8); PLATELET COUNT 255 K/MM3 (134-434); RBC 3.58 M/mm3 (3.60-5.2); RDW 15.6 % (11.6-15.6); WHITE BLOOD COUNT 6.9 K/mm3 (4.0-10.0)
[2019-07-20] MEDS ORDERED: ONDANSETRON 4 MG/2 ML VIAL ONE (17:19)
[2019-07-20] MEDS ORDERED: ACETAMINOPHEN INJECTION 100 ML IVPB ONE (17:19)
[2019-07-20 17:53] LABS: ALBUMIN 3.7 g/dl (3.4-5.0); BILIRUBIN,TOTAL 0.3 mg/dL (0.2-1); BLOOD UREA NITROGEN 18.7 mg/dL (7-18); CALCIUM 9.1 mg/dL (8.5-10.1); CREATININE 1.1 mg/dL (0.55-1.3); MAGNESIUM 2.2 mg/dL (1.8-2.4); POTASSIUM 4.6 mmol/L (3.5-5.1); TOT PROT 7.7 g/dl (6.4-8.2)
[2019-07-20] MEDS ORDERED: METOCLOPRAMIDE HCL INJECTION 10 MG/2 ML VIAL IVPUSH ONE (19:19)
[2019-07-20] MEDS ORDERED: METOCLOPRAMIDE HCL INJECTION 10 MG/2 ML VIAL ONE (19:22)
[2019-07-20 19:32] LABS: EPI CELLS 0.1 /HPF (0-5/HPF); HYALINE CASTS 0 /lpf (0-8); URINE APPEARANCE CLEAR; URINE BACTERIA 0.3 /hpf (NEGATIVE); URINE BILIRUBIN NEGATIVE (NEGATIVE); URINE COLOR YELLOW; URINE GLUCOSE (UA) NEGATIVE (NEGATIVE); URINE KETONE NEGATIVE (NEGATIVE); URINE LEUK ESTERASE NEGATIVE (NEGATIVE); URINE NITRITE NEGATIVE (NEGATIVE); URINE PROTEIN NEGATIVE (NEGATIVE); URINE RBC 7 /hpf (0-4); URINE UROBILINOGEN 0.2 mg/dL (0.2-1.0); URINE WBC 0 /hpf (0-5)
[2019-07-20 19:46] VITALS: BP 128/54; PULSE 77; TEMP 99.3
--- NOTE | 2019-07-20 21:32 | PDOC ---
*Physical Exam - Vital Signs Last Vital Signs Temp Pulse Resp BP Pulse Ox 99.3 F 77 18 128/54 L 97 07/20/19 19:45 07/20/19 19:45 07/20/19 19:45 07/20/19 19:45 07/20/19 19:45 ED Treatment Course - LABORATORY CBC & Chemistry Diagram: 07/20/19 16:48 07/20/19 16:48 - ADDITIONAL ORDERS Additional order review: Laboratory Results 07/20/19 07/20/19 07/20/19 19:00 16:48 16:48 Sodium 135 L Potassium 4.6 Chloride 102 Carbon Dioxide 26 Anion Gap 7 L BUN 18.7 H Creatinine 1.1 Est GFR (CKD-EPI)AfAm 58.91 Est GFR (CKD-EPI)NonAf 50.83 Random Glucose 89 Calcium 9.1 Magnesium 2.2 Total Bilirubin 0.3 AST 29 ALT 23 Alkaline Phosphatase 81 Creatine Kinase 96 Troponin I < 0.02 Total Protein 7.7 Albumin 3.7 Lipase 81 Urine Color Yellow Urine Appearance Clear Urine pH 7.0 Ur Specific [place] 1.007 L Urine Protein Negative Urine Glucose (UA) Negative Urine Ketones Negative Urine Blood 1+ H Urine Nitrite Negative Urine Bilirubin Negative Urine Urobilinogen 0.2 Ur Leukocyte Esterase Negative Urine WBC (Auto) 0 Urine RBC (Auto) 7 Urine Casts (Auto) 0 U Epithel Cells (Auto) 0.1 Urine Bacteria (Auto) 0.3 07/20/19 16:48 RBC 3.58 L MCV 91.6 MCHC 32.1 RDW 15.6 MPV 7.6 Neutrophils % 63.8 Lymphocytes % 21.7 D Monocytes % 12.6 H Eosinophils % 1.4 Basophils % 0.5 - Medications Given in the ED: ED Medications Discontinued Medications Generic Name Dose Route Start Last Admin Trade Name Freq PRN Reason Stop Dose Admin Acetaminophen 1,000 mg 07/20/19 16:35 07/20/19 17:20 Ofirmev Injection - IVPB 07/20/19 16:36 1,000 mg ONCE ONE Administration Sodium Chloride 1,000 mls @ 1,000 mls/hr 07/20/19 16:35 07/20/19 17:20 Normal Saline - IV 07/20/19 17:34 1,000 mls/hr ASDIR STA Administration Metoclopramide HCl 10 mg 07/20/19 19:19 07/20/19 19:33 Reglan Injection - IVPUSH 07/20/19 19:20 10 mg ONCE ONE Administration Ondansetron HCl 4 mg 07/20/19 16:35 07/20/19 17:20 Zofran Injection IVPUSH 07/20/19 16:36 4 mg ONCE ONE Administration Medical Decision Making - Medical Decision Making s/o from night team for likely DC after head CT 68 yo female hx of HTN, gout, hypothyroidism s/p thyroidectomy, hepatitis C, and vertigo presents to ED with subjective fevers, generalized weakness, headache, and nausea. FRectal temp normal, headache resolved after reglan, tylenol, fluids. Labs, UA, flu WNL Head CT neg for acute stroke Pt safe for DC home with PCP f/u and strict return precautions Discharge - Discharge Information Problems reviewed: Yes Clinical Impression/Diagnosis: Headache Disposition: HOME - Admission No - Follow up/Referral Referrals: German Flores MD [Primary Care Provider] - - Patient Discharge Instructions Patient Printed Discharge Instructions: DI for Headache Additional Instructions: Please see your Primary Doctor within the next 48 hours. Take over the counter tylenol for headaches and fevers. Return to the ER for new or concerning symptoms including but not limited to: changes in vision, weakness or sensory changes on 1 side, confusion, balance difficulty. Thank you Print Language: BULGARIAN - Post Discharge Activity
--- NOTE | 2019-07-21 14:30 | EKG ---
Test Reason : Blood Pressure : / mmHG Vent. Rate : 074 BPM Atrial Rate : 074 BPM P-R Int : 150 ms QRS Dur : 092 ms QT Int : 382 ms P-R-T Axes : 052 019 042 degrees QTc Int : 424 ms NORMAL SINUS RHYTHM NORMAL ECG WHEN COMPARED WITH ECG OF 11-AUG-2017 13:07, NO SIGNIFICANT CHANGE WAS FOUND Confirmed by MD CARROLL MOYSES ([id number]) on 07/21/2019 2:30:34 PM Referred By: Confirmed By:MARS CARROLL MD
== END 2019-07-20 21:39 | disposition home or self-care (01) ==
LOC: JER 14:48
PROC: 3E033GC Introduction of Other Therapeutic Substance into Peripheral Vein, Percutaneous Approach (ICD-10-PCS; principal; 2019-07-20)
PROC: 3E033GC Introduction of Other Therapeutic Substance into Peripheral Vein, Percutaneous Approach (ICD-10-PCS; 2019-07-20)
PROC: 3E033NZ Introduction of Analgesics, Hypnotics, Sedatives into Peripheral Vein, Percutaneous Approach (ICD-10-PCS; 2019-07-20)
DX: R51 Headache (principal); I10 Essential (primary) hypertension; E89.0 Postprocedural hypothyroidism; M10.9 Gout, unspecified; B18.2 Chronic viral hepatitis C
CPT/HCPCS: 36415; 70450-TC; 71045-TC-FY; 80053; 81003; 82550; 83690; 83735; 84484; 85025; 87086; 87804; 93005; 93010; 96374; 96375; 99283-25; J0131; J7030

== ENCOUNTER 2022-02-10 14:30 | Emergency (ER) | payer OTHER ==
[2022-02-10 14:54] VITALS: BP 188/86; PULSE 64; RESP 17; TEMP 98.9; BMI 33.5
[2022-02-10] MEDS ORDERED: ACETAMINOPHEN 325 MG TABLET (FP) PO ONE (15:49)
[2022-02-10] MEDS ORDERED: ACETAMINOPHEN 325 MG TABLET (FP) ONE (16:01)
== END 2022-02-10 19:00 | disposition home or self-care (01) ==
LOC: JER 14:30
DX: R51.9 Headache, unspecified (principal)
CPT/HCPCS: 70450-TC; 93005; 93010; 99284-25